=== PATIENT | male | born 1965 | race American Indian/Alaskan Native ===

== ENCOUNTER 2018-04-16 20:32 | Observation (INO) | payer BC ==
[2018-04-16 20:38] VITALS: BMI 25.8
--- NOTE | 2018-04-16 21:39 | ED PDOC ---
Arrival/HPI - General Chief Complaint: Chest Pain Time Seen by Provider: 04/16/18 21:12 Historian: Patient, Family - History of Present Illness Narrative History of Present Illness (Text): 04/16/18 21:38 A 52 year old male, whose past medical history includes , presents to the emergency department complaining of intermittent chest pain since earlier today. Patient reports he was eating lunch when he felt 2-3 sharp pains in is left chest lasting 10-15 seconds. Patient reports experiencing decreased appetite and some stomach discomfort. Patient denies any recent travels, fever, chills, shortness of breath, diarrhea, nausea, vomiting, urinary symptoms, back pain, neck pain, headache, dizziness, or any other complaints. PMD: Adriel Greer 04/17/18 05:36 Time/Duration: Other (earlier today) Symptom Onset: Gradual Symptom Course: Improving Activities at Onset: Light Context: Work Past Medical History - Provider Review Nursing Documentation Reviewed: Yes - Psychiatric Hx Substance Use: No - Anesthesia Hx Anesthesia: No Family/Social History - Physician Review Nursing Documentation Reviewed: Yes Family/Social History: Unknown Family HX Smoking Status: Never Smoked Hx Alcohol Use: No Hx Substance Use: No Allergies/Home Meds Allergies/Adverse Reactions: Allergies No Known Allergies Allergy (Verified 04/16/18 20:38) Home Medications: Home Meds Medication Instructions Recorded Confirmed RX: No Known Home Med 06/13/17 04/17/18 Review of Systems - Physician Review All systems were reviewed & negative as marked: Yes - Review of Systems Constitutional: absent: Fevers, Night Sweats Respiratory: absent: SOB Cardiovascular: Chest Pain Gastrointestinal: Abdominal Pain (Slight stomach discomfort). absent: Diarrhea, Nausea, Vomiting Genitourinary Male: absent: Urinary Output Changes Musculoskeletal: absent: Back Pain, Neck Pain Neurological: absent: Headache, Dizziness Physical Exam Vital Signs Reviewed: Yes Vital Signs Temp Pulse Resp BP Pulse Ox 04/16/18 20:49 98.3 F 65 17 132/81 98 Temperature: Afebrile Blood Pressure: Normal Pulse: Regular Respiratory Rate: Normal Appearance: Positive for: Well-Appearing, Non-Toxic, Comfortable Pain Distress: None Mental Status: Positive for: Alert and Oriented X 3 - Systems Exam Head: Present: Atraumatic, Normocephalic Pupils: Present: PERRL Extroacular Muscles: Present: EOMI Conjunctiva: Present: Normal Mouth: Present: Moist Mucous Membranes Neck: Present: Normal Range of Motion Respiratory/Chest: Present: Clear to Auscultation, Good Air Exchange. No: Respiratory Distress, Accessory Muscle Use Cardiovascular: Present: Regular Rate and Rhythm, Normal S1, S2. No: Murmurs Abdomen: No: Tenderness, Distention, Peritoneal Signs Back: Present: Normal Inspection Upper Extremity: Present: Normal Inspection. No: Cyanosis, Edema Lower Extremity: Present: Normal Inspection. No: Edema Neurological: Present: GCS=15, CN II-XII Intact, Speech Normal Skin: Present: Warm, Dry, Normal Color. No: Rashes Psychiatric: Present: Alert, Oriented x 3, Normal Insight, Normal Concentration Medical Decision Making ED Course and Treatment: 04/16/18 22:08 Impression: 52 year old male presenting to the emergency department complaining of chest pain. Plan: -- EKG -- Labs -- Chest X-ray -- Aspirin -- Urinalysis -- Reassess and disposition Prior Visits: Notes and results from previous visits were reviewed. Progress Notes: 04/16/18 22:00 EKG: Ordered, reviewed, and independently interpreted the EKG. Rate : 63 BPM Rhythm : NSR Interpretation : No ST-segment elevations or depressions, no T-wave inversions, normal intervals. Comparison : No previous EKG for comparison. 04/17/18 22:20 Chest X-ray reviewed by me, results show no acute findings. 04/17/18 22:[address] Rodriguez who accepts the patient for admission for further observation and consult for Dr. Zeng, certified teacher assistant. - RAD Interpretation Radiology Orders: 04/16/18 21:13 CHEST PORTABLE [RAD] Stat - Scribe Statement The provider has reviewed the documentation as recorded by the Scribdread Cesar All medical record entries made by the Scribe were at my direction and personally dictated by me. I have reviewed the chart and agree that the record accurately reflects my personal performance of the history, physical exam, medical decision making, and the department course for this patient. I have also personally directed, reviewed, and agree with the discharge instructions and disposition. Disposition/Present on Arrival - Present on Arrival Any Indicators Present on Arrival: No History of DVT/PE: No History of Uncontrolled Diabetes: No Urinary Catheter: No History of Decub. Ulcer: No History Surgical Site Infection Following: None - Disposition Have Diagnosis and Disposition been Completed?: Yes Diagnosis: Chest pain Disposition: HOSPITALIZED Disposition Time: 22:58 Patient Plan: Admission Condition: STABLE
[2018-04-16 21:44] LABS: BASO # 0.02 K/mm3 (0.0-2.0); BASO % 0.5 % (0.0-3.0); EOS # 0.1 (0.0-0.7); EOS % 1.4 % (1.5-5.0); GRAN # 1.65 (1.4-6.5); GRAN % 38.3 % (50.0-68.0); HEMOGLOBIN 15.3 g/dL (14.0-18.0); LYMPH # 2.3 (1.2-3.4); LYMPH % 53.8 % (22.0-35.0); MEAN CELL VOLUME 84.7 fl (80.0-105.0); MEAN CORPUSCULAR HEMOGLOBIN 28.6 pg (25.0-35.0); MEAN CORPUSCULAR HGB CONC 33.8 g/dl (31.0-37.0); MEAN PLATELET VOLUME 9.8 fl (7.0-11.0); MONO # 0.3 (0.1-0.6); RBC 5.35 10^6/uL (3.5-6.1); RED CELL DISTRIBUTION WIDTH 12.7 % (11.5-14.5); WHITE BLOOD COUNT 4.3 10^3/ul (4.5-11.0)
[2018-04-16 21:52] LABS: INR 1.02; PARTIAL THROMBOPLASTIN TIME 33.4 Seconds (25.1-36.5); PROTHROMBIN TIME 11.6 SECONDS (9.4-12.5)
[2018-04-16 21:58] LABS: ALB/GLOB RATIO 1.3 (1.1-1.8); ALBUMIN 4.7 g/dL (3.0-4.8); ALT/SGPT 30 U/L (7-56); AST/SGOT 32 U/L (17-59); BLOOD UREA NITROGEN 16 mg/dL (7-21); CALCIUM 9.5 mg/dL (8.4-10.5); GFR NON-AFRICAN AMERICAN > 60
[2018-04-16 22:12] LABS: B-TYPE NATRIURETIC PEPTIDE 16.4 pg/mL (0-450); TROPONIN I < 0.01 ng/mL
[2018-04-17 00:39] VITALS: O2SAT 100
[2018-04-17 06:51] VITALS: RESP 18
[2018-04-17 07:29] LABS: HEMOGLOBIN 14.9 g/dL (14.0-18.0); MEAN CELL VOLUME 84.3 fl (80.0-105.0); MEAN CORPUSCULAR HEMOGLOBIN 28.1 pg (25.0-35.0); MEAN CORPUSCULAR HGB CONC 33.3 g/dl (31.0-37.0); RBC 5.3 10^6/uL (3.5-6.1); RED CELL DISTRIBUTION WIDTH 12.7 % (11.5-14.5); WHITE BLOOD COUNT 3.1 10^3/ul (4.5-11.0)
[2018-04-17 07:54] LABS: TROPONIN I < 0.01 ng/mL
[2018-04-17 07:56] LABS: ALB/GLOB RATIO 1.3 (1.1-1.8); ALT/SGPT 29 U/L (7-56); AST/SGOT 22 U/L (17-59); BLOOD UREA NITROGEN 15 mg/dL (7-21); CALCIUM 9.1 mg/dL (8.4-10.5); GFR NON-AFRICAN AMERICAN > 60; HDL CHOLESTEROL 45 mg/dL (29-60); LDL CHOLESTEROL 85 mg/dL (0-129)
[2018-04-17] MEDS ORDERED: Pantoprazole 40 mg EC Tab PO SCH (08:00)
--- NOTE | 2018-04-17 09:48 | CARD ---
APPROVED REPORT Date of service: 04/16/2018 EKG Measurement Heart [id number] <Conclusion> Normal sinus rhythm Normal ECG
--- NOTE | 2018-04-17 10:06 | RAD ---
Date of service: 04/16/2018 HISTORY: chest pain COMPARISON: No prior. FINDINGS: LUNGS: No active pulmonary disease. PLEURA: No significant pleural effusion identified, no pneumothorax apparent. CARDIOVASCULAR: No atherosclerotic calcification present Normal. OSSEOUS STRUCTURES: No significant abnormalities. VISUALIZED UPPER ABDOMEN: Normal. OTHER FINDINGS: None. IMPRESSION: No active disease.
[2018-04-17] MEDS ORDERED: Potassium Chloride 20 mEq ER Tab PO ONE ×2 (11:46→15:21)
[2018-04-17 14:41] VITALS: PULSE 67
[2018-04-17 14:55] VITALS: BP 131/88; TEMP 98.6
--- NOTE | 2018-04-17 18:41 | CON ---
DATE OF CONSULTATION: 04/17/2018 The patient is in Room 264, Bed 2. REASON FOR CONSULTATION: Chest pain. HISTORY OF PRESENT ILLNESS: The patient is a 52-year-old male, came to the emergency room with intermittent chest pain, which was a sharp pain, only lasting a few seconds, got worse with moving side to side. The patient denies any prior history of any exertional chest pain or shortness of breath or palpitations. The patient denies any history of medical disease like blood pressure, diabetes, asthma, emphysema. PAST MEDICAL HISTORY: Nonsignificant. FAMILY HISTORY: Nonsignificant. PERSONAL HISTORY: Denies smoking. Denies drinking. MEDICATIONS AT HOME: The patient is not taking any medications at home. ALLERGIES: THE PATIENT DENIES ANY ALLERGIES. REVIEW OF SYSTEMS: All the systems reviewed, positive mentioned in history, others were negative. PHYSICAL EXAMINATION: VITAL SIGNS: Blood pressure 131/88, respirations 18, pulse 64, temperature 98.6. Head is normocephalic. Eyes, pupils normal, conjunctivae normal. Nose and throat normal . NECK: JVP low. Carotids equal. Thorax, AP diameter normal. LUNGS: Clear. CARDIOVASCULAR: S1, S2. ABDOMEN: Soft. No tenderness. No organomegaly. Bowel sounds normal. EXTREMITIES: No clubbing, no cyanosis. LABORATORY DATA: WBC 3.1, hemoglobin 14.9, hematocrit 44.7, platelets 209. Sodium 139, potassium 3.5, BUN 15, creatinine 0.7. AST and ALT normal. Troponin x2 negative. Cholesterol 153, LDL 85, HDL 45, triglycerides 62. Chest x-ray clear. EKG showed normal sinus rhythm. DIAGNOSES: 1. Atypical chest pain, probably musculoskeletal. 2. Low potassium. PLAN: The patient already received potassium p.o. 20, we will given another 20 mEq p.o., and the patient wants to go home, so he will do nuclear stress test and echo as outpatient and we will make arrangements to have that dome. In the meantime, the patient is chest pain free and we will follow with you. Brandin Zeng MD
== END 2018-04-17 15:31 | disposition home or self-care (01) ==
LOC: ED 20:32 → ERH 23:11 → 2RNO 04-17 01:01
PROVIDERS: ADMIT Internal Medicine; ATTEND Internal Medicine
DX: R07.89 Other chest pain (principal); E87.6 Hypokalemia
CPT/HCPCS: 36415; 71045; 80053; 80061; 82550; 83036; 83615; 83735; 83880; 84484; 85025; 85027; 85610; 85730; 93005; 99285; G0378

== ENCOUNTER 2018-08-14 23:44 | Emergency (ER) | payer BC ==
[2018-08-14 23:52] VITALS: BMI 25.8
[2018-08-15] MEDS ORDERED: Sodium Chloride 0.9% 1,000 ML IV STA (00:04)
--- NOTE | 2018-08-15 00:04 | ED PDOC ---
Arrival/HPI - General Chief Complaint: Chest Pain Historian: Patient - History of Present Illness Narrative History of Present Illness (Text): 08/14/18 23:57 52 y/o male, no significant pmh, nkda, c/o RUQ abdominal pain x 2 days with no fall or trauma. Aching pain, aggravated by movement, nuclear stress test perform on 03/2018 with no significant findings, echo with EF 55-60%, no fever or chills, no abdominal pain or pelvic pain, no rash, no coughing, no chest pain or shortness of breath, no urinary symptoms, no other medical or psychological complaints. Past Medical History - Provider Review Nursing Documentation Reviewed: Yes - Infectious Disease Hx of Infectious Diseases: None - Cardiac Hx Hypertension: Yes - Pulmonary Hx Respiratory Disorders: No - Neurological Hx Neurological Disorder: No - HEENT Hx HEENT Disorder: No - Renal Hx Renal Disorder: No - Endocrine/Metabolic Hx Endocrine Disorders: No - Hematological/Oncological Hx Blood Disorders: No - Integumentary Hx Dermatological Disorder: No - Musculoskeletal/Rheumatological Hx Musculoskeletal Disorders: No Hx Falls: No - Gastrointestinal Hx Gastrointestinal Disorders: No - Psychiatric Hx Psychophysiologic Disorder: No Hx Substance Use: No - Anesthesia Hx Anesthesia: No Family/Social History - Physician Review Nursing Documentation Reviewed: Yes Family/Social History: Unknown Family HX Smoking Status: Never Smoked Hx Alcohol Use: Yes Frequency of alcohol use: Socially Hx Substance Use: No Allergies/Home Meds Allergies/Adverse Reactions: Allergies No Known Allergies Allergy (Verified 08/14/18 23:51) Review of Systems - Review of Systems Constitutional: absent: Fatigue, Fevers Eyes: absent: Vision Changes ENT: absent: Hearing Changes Respiratory: absent: SOB, Cough Cardiovascular: absent: Chest Pain Gastrointestinal: Abdominal Pain. absent: Diarrhea, Nausea, Vomiting Musculoskeletal: absent: Arthralgias, Back Pain Skin: absent: Rash, Pruritis Neurological: absent: Headache, Dizziness Psychiatric: absent: Anxiety, Depression, Suicidal Ideation Physical Exam Vital Signs Reviewed: Yes Vital Signs Temp Pulse Resp BP Pulse Ox 08/14/18 23:51 97.9 F 63 18 135/78 97 Temperature: Afebrile Blood Pressure: Normal Pulse: Regular Respiratory Rate: Normal Appearance: Positive for: Well-Appearing, Non-Toxic, Comfortable Pain Distress: Mild Mental Status: Positive for: Alert and Oriented X 3 - Systems Exam Head: Present: Atraumatic, Normocephalic Pupils: Present: PERRL Extroacular Muscles: Present: EOMI Conjunctiva: Present: Normal Mouth: Present: Moist Mucous Membranes Neck: Present: Normal Range of Motion Respiratory/Chest: Present: Clear to Auscultation, Good Air Exchange. No: Respiratory Distress, Accessory Muscle Use, Wheezes, Decreased Breath Sounds, Rales, Retracting, Rhonchi, Tachypneic, Tender to Palpation Cardiovascular: Present: Regular Rate and Rhythm, Normal S1, S2. No: Murmurs Abdomen: No: Tenderness, Distention, Peritoneal Signs, Rebound, Guarding Back: Present: Normal Inspection. No: CVA Tenderness Upper Extremity: Present: Normal Inspection. No: Cyanosis, Edema Lower Extremity: Present: Normal Inspection. No: Edema Neurological: Present: GCS=15, CN II-XII Intact, Speech Normal Skin: Present: Warm, Dry, Normal Color. No: Rashes Psychiatric: Present: Alert, Oriented x 3, Normal Insight, Normal Concentration Medical Decision Making ED Course and Treatment: 08/15/18 00:07 -labs -ekg -cxr -sonogram -IVF/toradol/pepcid -Observe and reassess 08/15/18 01:46 -EKG: NSR @ 64 BPM, no ST elevation or depression, no T wave inversion -Chest xray Er wet read: no active disease -Abdominal sonogram: No evidence of cholelithiasis or acute cholecystitis. -Labs show no acute findings -Lipase is negative -Trop after 24 hours is negative, HEART score is low -UA show no UTI -Pt. feels well, pain resolved, request to be discharge home. Pt. advised to follow up with the GI for colonoscopy and specialist follow up for any etiology cancerous. -Discharge home with pepcid, tylenol, follow up with your own pmd and GI within 2 days, return to the ER for any new or worsening signs or symptoms. - RAD Interpretation Radiology Orders: Chest xray: Abdominal sonogram: Ultrasound of the abdomen, complete. Indication: Right upper quadrant pain. Technique: Real-time ultrasound images were obtained. Findings: Liver is normal in size measuring 14.4 cm. Simple hepatic cyst measuring 1.4 cm. Nondilated common bile duct measuring 4.9 mm. No evidence of cholelithiasis or acute cholecystitis. Unremarkable spleen. Unremarkable kidneys. Nonaneurysmal aorta. Unremarkable IVC. Impression: No evidence of cholelithiasis or acute cholecystitis. Electronically signed on Aug 15, 2018 1:17:11 AM EST by: Miroslava Cannon M.D., Certified by ABR, MSK, Neuroradiology Lead Principal Technical Architect: Radiologist - EKG Interpretation EKG Interpretation (Text): 08/15/18 00:08 -EKG: NSR @ 64 BPM, no ST elevation or depression, no T wave inversion Interpreted by ED Physician: Yes Type: 12 lead EKG - PA / BRAILLE TYPIST / Resident Statement MD/DO has reviewed & agrees with the documentation as recorded. Disposition/Present on Arrival - Present on Arrival Any Indicators Present on Arrival: No History of DVT/PE: No History of Uncontrolled Diabetes: No Urinary Catheter: No History of Decub. Ulcer: No History Surgical Site Infection Following: None - Disposition Have Diagnosis and Disposition been Completed?: Yes Diagnosis: Abdominal pain Disposition: HOME/ ROUTINE Disposition Time: 01:29 Patient Plan: Discharge Patient Problems: Current Active Problems Problem Status Onset Abdominal pain Acute Condition: IMPROVED Additional Instructions: -Discharge home with pepcid, tylenol, follow up with your own pmd and GI within 2 days, return to the ER for any new or worsening signs or symptoms. Prescriptions: Acetaminophen [Pain Reliever] 500 mg PO QID PRN #30 tablet PRN Reason: Other Famotidine [Pepcid] 20 mg PO BID #20 tab Referrals: Lilliana Pulido MD [Primary Care Provider] - Follow up with primary Babar Roger MD [Staff Provider] - Follow up with primary Forms: [employer] (Guatemalan), WORK NOTE
[2018-08-15 00:25] LABS: BASO # 0.02 K/mm3 (0.0-2.0); BASO % 0.5 % (0.0-3.0); EOS # 0.1 (0.0-0.7); EOS % 1.5 % (1.5-5.0); HEMOGLOBIN 14.1 g/dL (14.0-18.0); LYMPH # 1.6 (1.2-3.4); MEAN CELL VOLUME 86.2 fl (80.0-105.0); MEAN CORPUSCULAR HEMOGLOBIN 28.7 pg (25.0-35.0); MEAN CORPUSCULAR HGB CONC 33.3 g/dl (31.0-37.0); MEAN PLATELET VOLUME 9.9 fl (7.0-11.0); MONO # 0.4 (0.1-0.6); MONO % 9.8 % (1.0-6.0); RBC 4.91 10^6/uL (3.5-6.1); RED CELL DISTRIBUTION WIDTH 12.9 % (11.5-14.5); WHITE BLOOD COUNT 3.9 10^3/uL (4.5-11.0)
[2018-08-15 00:35] LABS: BLOOD UREA NITROGEN 16 mg/dL (7-21); GFR NON-AFRICAN AMERICAN > 60
[2018-08-15 00:36] LABS: ALB/GLOB RATIO 1.3 (1.1-1.8); ALBUMIN 4.5 g/dL (3.0-4.8); ALT/SGPT 23 U/L (7-56); AST/SGOT 34 U/L (17-59); CALCIUM 9.5 mg/dL (8.4-10.5); LIPASE 65 U/L (23-300)
[2018-08-15 00:46] LABS: TROPONIN I < 0.01 ng/mL
[2018-08-15 01:38] LABS: URINE BILIRUBIN NEGATIVE (NEGATIVE); URINE BLOOD NEGATIVE (NEGATIVE); URINE GLUCOSE (UA) NEGATIVE (NEGATIVE); URINE LEUKOCYTE ESTERASE NEGATIVE Leu/uL (NEGATIVE); URINE PROTEIN NEGATIVE mg/dL (<30 mg/dL); URINE UROBILINOGEN 0.2 E.U./dL (<1 E.U./dL)
[2018-08-15 01:39] LABS: URINE APPEARANCE CLEAR (CLEAR); URINE COLOR LIGHT YELLOW (YELLOW)
[2018-08-15 02:08] VITALS: BP 129/75; PULSE 65; RESP 19; TEMP 99.1; O2SAT 100
--- NOTE | 2018-08-15 09:40 | RAD ---
Date of service: 08/15/2018 HISTORY: RUQ abdominal pain COMPARISON: Comparison chest 04/16/2018 TECHNIQUE: Chest PA and lateral FINDINGS: LUNGS: No active pulmonary disease. PLEURA: No significant pleural effusion identified. No pneumothorax apparent. CARDIOVASCULAR: No aortic atherosclerotic calcification present. Normal cardiac size. No pulmonary vascular congestion. OSSEOUS STRUCTURES: Minor multilevel degenerative spondylosis of the thoracic spine VISUALIZED UPPER ABDOMEN: Normal. OTHER FINDINGS: None. IMPRESSION: No active disease.
--- NOTE | 2018-08-15 12:40 | US ---
Date of service: 08/15/2018 HISTORY: RUQ pain x 2 days COMPARISON: No prior study available for comparison TECHNIQUE: Sonographic evaluation of the abdomen. FINDINGS: LIVER: Measures 14.4 cm. Normal echogenicity of the liver parenchyma. There is a small cyst seen right lobe liver that measures 1.4 x 1.3 x 1.5 cm. No intrahepatic bile duct dilatation. GALLBLADDER: Unremarkable. No gallstones. No pericholecystic fluid collections. No reported sonographic Rosa sign COMMON BILE DUCT: Measures 4.9 mm. No stones. No dilatation. PANCREAS: Pancreas is not visualized on this study due to body habitus and bowel gas RIGHT KIDNEY: Measures 10.3 x 5.0 x 4.6cm. Normal echogenicity. No calculus, mass, or hydronephrosis. LEFT KIDNEY: Measures 11.1 x 5.8 x 5.4cm. Normal echogenicity. No calculus, mass, or hydronephrosis. SPLEEN: Normal in size and contour. No mass. AORTA: No aneurysmal dilatation. IVC: Unremarkable. OTHER FINDINGS: None. IMPRESSION: Small cyst right lobe liver as above. No evidence of cholelithiasis. Pancreas not visualized due to body habitus and bowel gas.
--- NOTE | 2018-08-15 20:11 | CARD ---
APPROVED REPORT Date of service: 08/14/2018 EKG Measurement Heart [id number] <Conclusion> Normal sinus rhythm Normal ECG
== END 2018-08-15 02:08 | disposition home or self-care (01) ==
LOC: ED 23:44
DX: R10.11 Right upper quadrant pain (principal); I10 Essential (primary) hypertension
CPT/HCPCS: 71046; 76700; 80053; 81003; 83690; 83735; 84484; 85025; 93005; 96374; 96375; 99283; J1885; J7030

== ENCOUNTER 2018-11-08 19:44 | Emergency (ER) | payer BC ==
[2018-11-08 19:45] VITALS: BMI 25.8
--- NOTE | 2018-11-08 19:56 | ED PDOC ---
Arrival/HPI - General Historian: Patient - History of Present Illness Narrative History of Present Illness (Text): 11/08/18 19:56 53 y/o male, no significant pmh, nkda, Past Medical History - Infectious Disease Hx of Infectious Diseases: None - Cardiac Hx Hypertension: Yes - Pulmonary Hx Respiratory Disorders: No - Neurological Hx Neurological Disorder: No - HEENT Hx HEENT Disorder: No - Renal Hx Renal Disorder: No - Endocrine/Metabolic Hx Endocrine Disorders: No - Hematological/Oncological Hx Blood Disorders: No - Integumentary Hx Dermatological Disorder: No - Musculoskeletal/Rheumatological Hx Musculoskeletal Disorders: No Hx Falls: No - Gastrointestinal Hx Gastrointestinal Disorders: No - Psychiatric Hx Psychophysiologic Disorder: No Hx Substance Use: No - Anesthesia Hx Anesthesia: No Family/Social History Smoking Status: Never Smoked Hx Alcohol Use: Yes Hx Substance Use: No Allergies/Home Meds Allergies/Adverse Reactions: Allergies No Known Allergies Allergy (Verified 11/08/18 20:01) Home Medications: Home Meds Medication Instructions Recorded Confirmed No Known Home Med 11/08/18 11/08/18 Medical Decision Making ED Course and Treatment: 11/08/18 19:56 Pt. seen by MARTA Boudreaux, please review her note. - PA / PC NETWORK TECHNICIAN / Resident Statement MD/DO has reviewed & agrees with the documentation as recorded. Disposition/Present on Arrival - Present on Arrival Any Indicators Present on Arrival: No History of DVT/PE: No History of Uncontrolled Diabetes: No Urinary Catheter: No History Surgical Site Infection Following: None - Disposition Diagnosis: Abrasion Disposition: HOME/ ROUTINE Disposition Time: 19:56 Condition: STABLE Discharge Instructions (ExitCare): Wound Care (DC), Preventing HIV After Unprotected Sex or Needle-Sharing Additional Instructions: Keep wound clean, dry, and covered. Followup with primary doctor TOMORROW Return to ER with any new/worsening symptoms Referrals: Lilliana Pulido MD [Staff Provider] - Follow up with primary Chris Bird MD [Staff Provider] - Follow up with primary Forms: [email or web address] (Urdu), WORK NOTE
[2018-11-08 20:00] VITALS: PULSE 68; RESP 18; TEMP 99; O2SAT 99
[2018-11-08] MEDS ORDERED: TDAP Vaccine 0.5 mL Syr IM ONE (20:20)
[2018-11-08] MEDS ORDERED: Bacitracin 500 Units/gm Oint Foilpak UD TOP ONE (20:40)
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
[2018-11-08 21:55] VITALS: BP 130/84
[2018-11-09 12:25] LABS: HEPATITIS B SURFACE AG Negative (NEGATIVE)
[2018-11-09 12:32] LABS: HEPATITIS A IGM NEGATIVE (NEGATIVE); HEPATITIS B CORE AB NEGATIVE (NEGATIVE)
[2018-11-09 12:44] LABS: HEPATITIS C ANTIBODY NEGATIVE (NEGATIVE)
== END 2018-11-08 22:01 | disposition home or self-care (01) ==
LOC: ED 19:44
DX: S60.311A Abrasion of right thumb, initial encounter (principal); W26.8XXA Contact with other sharp object(s), not elsewhere classified, initial encounter; Y92.810 Car as the place of occurrence of the external cause; Z23 Encounter for immunization